=== PATIENT | female | born 1995 | race Caucasian/White ===

== ENCOUNTER 2020-01-30 23:27 | Inpatient (IN) | payer BC ==
[2020-01-31] MEDS ORDERED: Sodium Chloride 0.9% 10 ML Syringe FLUSH PRN (00:30)
[2020-01-31] MEDS ORDERED: Oxytocin/Lactated Ringers 10 UNIT/1,000 ML BAG IV SCH (00:30)
[2020-01-31] MEDS ORDERED: Bupivacaine/fentaNYL/NS 100 ML Bag EPIDUR PRN (00:46)
[2020-01-31] MEDS ORDERED: ePHEDrine 50 MG/ML SDV IVPUSH PRN (00:46)
[2020-01-31] MEDS ORDERED: fentaNYL 100 MCG/2 ML SDV EPIDUR PRN (00:46)
[2020-01-31] MEDS ORDERED: diphenhydrAMINE 50 MG/ML SDV IVPUSH PRN (00:46)
[2020-01-31] MEDS: Lactated Ringers 1,000 ML IV SCH ×2 (00:49→01:37)
--- NOTE | 2020-01-31 00:59 | PCM.LDHP ---
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 Source of Information: Patient History Limitations: Reports: No Limitations - History of Present Illness Introduction:: Kellie is a 24-year-old 2 para 1001 white female was admitted review nurse hours of 01/31/2020 9-3/7 weeks gestational age with an ROSA MARIA of 02/04/2020 in active labor with advanced cervical dilation of 8 cm.She began [place] approximately 6 hours ago. He has been active. Contractions increased and her severe, occurring every 3 minutes. Bag water is intact. The strep screen is negative. She has a history of genital HSV but has no symptoms at this time. Exam in labor and delivery is negative for any genital lesions. She is presently on Valtrex 500 mg by mouth twice a day prophylactically for the genital HSV. He was scheduled for induction on 02/01/2020 0700 hrs. 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 ROSA MARIA of is determined by last menstrual period of 04/30/2019 and supported by at least 2 ultrasounds done 09/23 and 10/20/2013. Patient had menarche at age 11. Cycles every 30 days. No control being used at this time conception. Her first delivery was at 38 weeks on 08/28/2018 after 10 hours of labor she delivered a 7 lbs. 1 oz. female via normal spontaneous vaginal delivery with the help of an epidural at [facility] in [place]. Child's name is Jian. course: Patient was first seen for the on 07/13/2019 at 10 weeks and 0 days. She was seen on a regular basis. Weight gain was from 149.8 pounds to 173 pounds for a 24 pound increase. Vital signs remained stable throughout the course and there was no evidence of gestational hypertension as it was with her first . She started on Valtrex at 36 weeks to prophylax against genital HSV recurrence. Patient does have a history of asthma but did not have any problems with this during the course of . She declined flu vaccine. T dap given on 11/29/2019 and her MMR indicated rubella immunity. She has had her HPV immunizations 2008 and her meningococcal vaccination in 2008. Laboratory testing shows blood to be AB+ with negative MRI screening. First hemoglobin is 13.5 g/dL and platelets are 239,000. She is rubella immune. Urine culture was unremarkable. Patient declined chlamydia and gonorrhea evaluation. Second trimester labs showed hemoglobin 11.3 g or deciliter and platelets at 263,000. One-hour GTT was normal at 91 group B strep screen was negative. RPR 10/28/2019 was nonreactive. Allergies: Augmentin which causes a rash Medications: 1. Valacyclovir 500 mg by mouth twice a day prophylactically for genital herpes 2. vitamins 1 daily. Past medical history: 1. Asthma 2. 2017 Past surgical history: 1. Tubes in her ears 2004. 2. [place] teeth extraction Family history: Brother with history of depression. Maternal grandmother with thyroid dysfunction. Mother and sister with history of asthma. Grandfather with colon cancer and paternal grandfather prostate cancer. Maternal grandmother with lung cancer. No anesthesia, bleeding, blood clotting problems noted in the family. Social history: Patient is single. Lives in [place]. She is any significant loss of alcohol, drugs or tobacco. Review of systems: In general patient has active labor with contractions every 3 minutes. Baby has been active by her history. Skin: Negative Lungs: No infectious symptoms or shortness of breath Cardiovascular: No chest pain or exercise intolerance Breasts: Changes associated with .. GI: Negative : Body habitus changes associated with . Musculoskeletal: Negative Neurological: Negative In general the patient is well-developed, well-nourished, pleasant female of stated age in no acute distress. On last evaluation on 01/27/2020 blood pressure 122/80 weight was 173 with pregravid weight 149.8 pounds. Height is 5 feet 5 inches and prepregnancy BMI was 24.8 Skin is warm dry without lesions. HEENT, neck and back within normal limits. Lungs are clear with good breath sounds in all lung altamirano. Cardiovascular exam shows regular and rhythm without murmurs. Breast exam is deferred having been done the first visit and found to be normal. Abdomen is gravid with last fundal height clinic at 38 cm with baby in a vertex presentation.. Genital digital exam per nursing evaluation is 8 cm. Last evaluation clinic showed cervix to be 3 cm, 80% effaced, -3 station, soft, anterior position. Extremities and neurological exam are grossly within normal limits. 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: - Infectious Disease History Infectious Disease History: Reports: Herpes (genital) Social & Family History - Family History Family Medical History: Noncontributory - Caffeine Use Caffeine Use: Reports: None - Sexual History Sexual History: Reports: Single Partner - Living Situation & Occupation Living situation: Reports: Occupation: Employed H&P Review of Systems - Review of Systems: Review Of Systems: See Below L&D Exam - Exam Exam: See Below - Vital Signs Weight: 78.925 kg - Patient Data Lab Results Last 24 hrs: Laboratory Results - last 24 hr 01/31/20 Range/Units 00:25 WBC 13.11 H (3.98-10.04) K/mm3 RBC 4.30 (3.98-5.22) M/mm3 Hgb 12.7 (11.2-15.7) gm/dl Hct 38.3 (34.1-44.9) % MCV 89.1 (79.4-94.8) fl MCH 29.5 (25.6-32.2) pg MCHC 33.2 (32.2-35.5) g/dl RDW Std Deviation 47.0 H (36.4-46.3) fL Plt Count 244 (182-369) K/mm3 MPV 9.3 L (9.4-12.3) fl Neut % (Auto) 66.4 (34.0-71.1) % Lymph % (Auto) 22.3 (19.3-51.7) % O'Brien % (Auto) 9.3 (4.7-12.5) % Eos % (Auto) 1.0 (0.7-5.8) Baso % (Auto) 0.2 (0.1-1.2) % Neut # (Auto) 8.70 H (1.56-6.13) K/mm3 Lymph # (Auto) 2.93 (1.18-3.74) K/mm3 O'Brien # (Auto) 1.22 H (0.24-0.36) K/mm3 Eos # (Auto) 0.13 (0.04-0.36) K/mm3 Baso # (Auto) 0.03 (0.01-0.08) K/mm3 Result Diagrams: 01/31/20 00:25 Problem List Initiated/Reviewed/Updated: Yes Orders Last 24hrs: Active Orders 24 hr Category Date Time Status Patient Status [ADT] Routine ADT 01/30/20 23:47 Active Patient Status [ADT] Routine ADT 01/31/20 00:30 Active Activity as Tolerated [RC] PFP Care 01/31/20 00:30 Active Communication Order [RC] ASDIRECTED Care 01/31/20 00:30 Active Heart Tones [RC] ASDIRECTED Care 01/31/20 00:30 Active Non Stress Test [RC] PER UNIT ROUTINE Care 01/30/20 23:47 Active Notify Provider [RC] ASDIRECTED Care 01/31/20 00:46 Active Notify Provider [RC] PFP Care 01/31/20 00:30 Active Notify Provider [RC] PRN Care 01/31/20 00:30 Active Peripheral IV Care [RC] . DIRECTED Care 01/31/20 00:30 Active Vital Signs [RC] PER UNIT ROUTINE Care 01/30/20 23:47 Active Vital Signs [RC] PER UNIT ROUTINE Care 01/31/20 00:30 Active Regular Diet [DIET] Diet 01/31/20 Breakfast Active RAPID PLASMA REAGIN,RPR [CHEM] Routine Lab 01/31/20 00:25 Received Bupivacaine/fentaNYL/NS [fentaNYL/Bupivacaine/NS 2 MCG- Med 01/31/20 00:46 Ordered 0.125% 100 ML] 100 ml EPIDUR ASDIRECTED PRN Lactated Ringers [Ringers, Lactated] 1,000 ml Med 01/31/20 00:30 Active IV ASDIRECTED Oxytocin/Lactated Ringers [Pitocin in LR 10 Units/1,000 Med 01/31/20 00:30 Active ML] 10 unit in 1,000 ml IV .CONTINUOUS Sodium Chloride 0.9% [Saline Flush] Med 01/31/20 00:30 Active 10 ml FLUSH ASDIRECTED PRN diphenhydrAMINE [Benadryl] Med 01/31/20 00:46 Ordered 25 mg IVPUSH Q6H PRN ePHEDrine [ePHEDrine sulfate] Med 01/31/20 00:46 Ordered 5 mg IVPUSH ASDIRECTED PRN fentaNYL [Sublimaze] Med 01/31/20 00:46 Ordered 100 mcg EPIDUR Q3H PRN Electronic Heart Tones Ext w TOCO [WOMSER] Oth 01/31/20 00:30 Ordered Routine Electronic Heart Tones Internal [WOMSER] Per Unit Oth 01/31/20 00:30 Ordered Routine Peripheral IV Insertion Adult [OM.PC] Routine Oth 01/31/20 00:30 Ordered Resuscitation Status Routine Resus Stat 01/30/20 23:47 Ordered Medication Orders Diphenhydramine HCl (Benadryl) 25 mg IVPUSH Q6H PRN PRN Reason: pruritis Ephedrine Sulfate (Ephedrine Sulfate) 5 mg IVPUSH ASDIRECTED PRN PRN Reason: Hypotension Fentanyl (Sublimaze) 100 mcg EPIDUR Q3H PRN PRN Reason: Pain Fentanyl/Bupivacaine HCl (Fentanyl/Bupivacaine/Ns 2 Mcg-0.125% 100 Ml) 100 ml EPIDUR ASDIRECTED PRN PRN Reason: Pain Lactated Ringer's (Ringers, Lactated) 1,000 mls @ 100 mls/hr IV ASDIRECTED LORRAINE Oxytocin/Lactated Ringer's (Pitocin In Lr 10 Units/1,000 Ml) 10 unit in 1,000 mls @ 500 mls/hr IV .CONTINUOUS LORRAINE; Protocol Sodium Chloride (Saline Flush) 10 ml FLUSH ASDIRECTED PRN PRN Reason: Keep Vein Open Assessment/Plan Comment:: 1. 39-2/7 week intrauterine , active labor with advanced cervical dilation of 8 cm upon admission to the hospital. 2. Group B strep screen is negative 3. Because of anticipated delivery or we will do a spinal instead of an epidural for labor analgesia 4. Rubella immune 5. Patient declined meeting gonorrhea and other STI testing at first visit 6. Patient plans to breast-feed. 7. History of gestational hypertension with last Plan: 1. Despite normal spontaneous vaginal delivery 2. Spinal analgesia prior to delivery 3. Support breast-feeding decision 4. Normal labor care
--- NOTE | 2020-01-31 01:13 | PCM.PREANE ---
Preanesthetic Assessment - Procedure Proposed Procedure: brissa - Anesthesia/Transfusion/Family Hx Anesthesia History: Prior Anesthesia Without Reaction Family History of Anesthesia Reaction: No Transfusion History: No Prior Transfusion(s) - Review of Systems General: No Symptoms Pulmonary: No Symptoms Cardiovascular: No Symptoms Gastrointestinal: No Symptoms Neurological: No Symptoms - Physical Assessment Vital Signs: 109/79 78 100% 20 Height: 5 ft 5 in Weight: 78.925 kg ASA Class: 2 Mental Status: Alert & Oriented x3 Airway Class: Mallampati = 1 Dentition: Reports: Normal Dentition Thyro-Mental Finger Breadths: 3 ROM/Head Extension: Full Lungs: Clear to Auscultation, Normal Respiratory Effort - Lab Values: Laboratory Last Values WBC 13.11 K/mm3 (3.98-10.04) H 01/31/20 00:25 RBC 4.30 M/mm3 (3.98-5.22) 01/31/20 00:25 Hgb 12.7 gm/dl (11.2-15.7) 01/31/20 00:25 Hct 38.3 % (34.1-44.9) 01/31/20 00:25 MCV 89.1 fl (79.4-94.8) 01/31/20 00:25 MCH 29.5 pg (25.6-32.2) 01/31/20 00:25 MCHC 33.2 g/dl (32.2-35.5) 01/31/20 00:25 RDW Std Deviation 47.0 fL (36.4-46.3) H 01/31/20 00:25 Plt Count 244 K/mm3 (182-369) 01/31/20 00:25 MPV 9.3 fl (9.4-12.3) L 01/31/20 00:25 Neut % (Auto) 66.4 % (34.0-71.1) 01/31/20 00:25 Lymph % (Auto) 22.3 % (19.3-51.7) 01/31/20 00:25 Dickenson % (Auto) 9.3 % (4.7-12.5) 01/31/20 00:25 Eos % (Auto) 1.0 (0.7-5.8) 01/31/20 00:25 Baso % (Auto) 0.2 % (0.1-1.2) 01/31/20 00:25 Neut # (Auto) 8.70 K/mm3 (1.56-6.13) H 01/31/20 00:25 Lymph # (Auto) 2.93 K/mm3 (1.18-3.74) 01/31/20 00:25 Dickenson # (Auto) 1.22 K/mm3 (0.24-0.36) H 01/31/20 00:25 Eos # (Auto) 0.13 K/mm3 (0.04-0.36) 01/31/20 00:25 Baso # (Auto) 0.03 K/mm3 (0.01-0.08) 01/31/20 00:25 - Allergies Allergies/Adverse Reactions: Allergies Allergy/AdvReac Type Severity Reaction Status Date / Time amoxicillin [From Augmentin] Allergy Rash Verified 01/05/20 16:55 clavulanic acid Allergy Rash Verified 01/05/20 16:55 [From Augmentin] - Blood Blood Available: No - Acknowledgements Anesthesia Type Planned: Epidural Pt an Appropriate Candidate for the Planned Anesthesia: Yes Alternatives and Risks of Anesthesia Discussed w Pt/Guardian: Yes Pt/Guardian Understands and Agrees with Anesthesia Plan: Yes PreAnesthesia Questionnaire Cardiovascular History: Reports: None Gastrointestinal History: Reports: GERD 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: - Infectious Disease History Infectious Disease History: Reports: Herpes (genital) - Past Surgical History HEENT Surgical History: Reports: Myringotomy w Tube(s), Oral Surgery - SUBSTANCE USE Smoking Status *Q: Never Smoker Tobacco Use Within Last Twelve Months: No Second Hand Smoke Exposure: No Days Per Week of Alcohol Use: 0 Recreational Drug Use History: No - HOME MEDS Home Medications: Home Meds Pnv No.95/Ferrous Fum/Folic AC [ Vitamin Tablet] 1 each PO DAILY [History] Acetaminophen [Tylenol] 650 mg PO Q6H PRN tablet 08/29/18 [Rx] - CURRENT (IN HOUSE) MEDS Current Meds: Current Medications Diphenhydramine HCl (Benadryl) 25 mg IVPUSH Q6H PRN PRN Reason: pruritis Ephedrine Sulfate (Ephedrine Sulfate) 5 mg IVPUSH ASDIRECTED PRN PRN Reason: Hypotension Fentanyl (Sublimaze) 100 mcg EPIDUR Q3H PRN PRN Reason: Pain Fentanyl/Bupivacaine HCl (Fentanyl/Bupivacaine/Ns 2 Mcg-0.125% 100 Ml) 100 ml EPIDUR ASDIRECTED PRN PRN Reason: Pain Lactated Ringer's (Ringers, Lactated) 1,000 mls @ 100 mls/hr IV ASDIRECTED LORRAINE Last Admin: 01/31/20 00:49 Dose: 999 mls/hr Oxytocin/Lactated Ringer's (Pitocin In Lr 10 Units/1,000 Ml) 10 unit in 1,000 mls @ 500 mls/hr IV .CONTINUOUS LORRAINE; Protocol Sodium Chloride (Saline Flush) 10 ml FLUSH ASDIRECTED PRN PRN Reason: Keep Vein Open
--- NOTE | 2020-01-31 02:02 | PCM.SN ---
- Free Text/Narrative Note: 01/31/20 0045 IV started 20 guage right hand times 1 attempt. AJordaCRNA
--- NOTE | 2020-01-31 02:31 | PCM.SN ---
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 She progressed relatively rapidly to complete cervical dilation. Artificial rupture membranes resulted in clear amniotic fluid. At 0209 hrs. on 01/31/2020 she delivered a viable, terry, male infant with Apgars of 8 and 9, weight 3110 g (6 lbs. 14 oz.), a length of 20.5 inches in a direct occiput anterior over an intact perineum. Baby's nose and mouth were bulb suctioned. Baby was placed on mom's abdomen and dried with warm blanket. The cord was allowed to pulsate for approximately 2 minutes and was clamped 2 and cut by the patient's father. Umbilical cord had 3 vessels and cord blood was obtained. The patient was given Pitocin IV at a rate of 500 mL per hour per protocol to reduce likelihood of bleeding. The placenta delivered in a [place]ose[place] presentation at 0214 hours, appeared intact and complete and was discarded per patient desire. Patient plans to breast-feed. Estimated blood loss was 100 mL. Condition: Good
[2020-01-31] MEDS ORDERED: Methylergonovine 0.2 MG/1 ML Amp IM STA (02:52)
[2020-01-31] MEDS ORDERED: Methylergonovine 0.2 MG/1 ML Amp ONE (02:53)
[2020-01-31] MEDS ORDERED: Docusate Sodium 100 MG Cap PO PRN (03:24)
[2020-01-31] MEDS ORDERED: Witch Hazel Medicated Pads 40/Jar TOP PRN (03:24)
[2020-01-31] MEDS ORDERED: Acetaminophen 325 MG Tab PO PRN (03:24)
[2020-01-31] MEDS ORDERED: Benzocaine/Menthol 20%-0.5% Spray 56 GM Canister TOP PRN (03:24)
[2020-01-31] MEDS: Ibuprofen 600 MG Tab PO PRN ×2 (07:01→18:58)
--- NOTE | 2020-01-31 07:59 | PCM48HPAN ---
Post Anesthesia Note - EVALUATION WITHIN 48HRS OF ANESTHETIC Vital Signs in Normal Range: Yes Patient Participated in Evaluation: Yes Respiratory Function Stable: Yes Airway Patent: Yes Cardiovascular Function Stable: Yes Hydration Status Stable: Yes Pain Control Satisfactory: Yes Nausea and Vomiting Control Satisfactory: Yes Mental Status Recovered: Yes
[2020-01-31] MEDS ORDERED: Bupivacaine 0.25% 10 ML SDV ONE (08:00)
--- NOTE | 2020-01-31 08:56 | PCM.SN ---
- Free Text/Narrative Note: Date of delivery: note: Patient is doing well in the period. Minimal lochia, voiding well, ambulated without problems. Nursing without concerns. Patient is afebrile, vital signs are stable Abdomen is flat, soft, uterus is below the umbilicus and is firm and nontender. Legs are nontender. Assessment: recovery going well. Plan: Routine care. Patient be discharged home within the next 24-48 hours.
[2020-01-31] MEDS: Prenatal Multivitamin with Calcium/Folic Acid/Iron Tab PO SCH (19:25)
--- NOTE | 2020-02-01 08:17 | PCM.DCSUM1 ---
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 She progressed relatively rapidly to complete cervical dilation. Artificial rupture membranes resulted in clear amniotic fluid. At 0209 hrs. on 01/31/2020 she delivered a viable, terry, male with Apgars of 8 and 9, weight 3110 g (6 lbs. 14 oz.), a length of 20.5 inches in a direct occiput anterior over an intact perineum. Baby's nose and mouth were bulb suctioned. Baby was placed on mom's abdomen and dried with warm blanket. The cord was allowed to pulsate for approximately 2 minutes and was clamped 2 and cut by the patient's father. Umbilical cord had 3 vessels and cord blood was obtained. The patient was given Pitocin IV at a rate of 500 mL per hour per protocol to reduce likelihood of bleeding. The placenta delivered in a [place]ose[place] presentation at 0214 hours, appeared intact and complete and was discarded per patient desire. Patient plans to breast-feed. Estimated blood loss was 100 mL. Patient is doing fine . She is ambulating well, has minimal lochia and is voiding without concerns. She is desiring discharge home. Condition: Good Diagnosis: Stroke: No - Discharge Data Discharge Date: 02/01/20 Discharge Disposition: Home, Self-Care 01 Condition: Good - Referral to Home Health Primary Care Physician: Hernán Francis MD - Patient Instructions Diet: Regular Diet as Tolerated (Nursing diet with increase calories and calcium as recommended) Driving: May Drive Today Showering/Bathing: May Shower (May take a bath) Notify Provider of: Fever, Increased Pain, Swelling and Redness, Nausea and/or Vomiting - Discharge Plan Home Medications: Home Meds Pnv No.95/Ferrous Fum/Folic AC [ Vitamin Tablet] 1 each PO DAILY [History] Acetaminophen [Tylenol] 650 mg PO Q6H PRN tablet 08/29/18 [Rx] Acetaminophen [Tylenol] 650 mg PO Q4H PRN tablet 02/01/20 [Rx] Ibuprofen [Motrin] 600 mg PO Q4H PRN tablet 02/01/20 [Rx] Referrals: James Daily MD [Physician] - (Return to clinicDr. Daily6 weeks.) - Discharge Summary/Plan Comment DC Time >30 min.: No Discharge Summary/Plan Comment: Discharge instructions: 1. Discharge home 2. Diet, activity and follow-up discussed with patient. Recommend nursing diet with increased calories and calcium. 3. Precautions given concern increased pain, bleeding, temperature, signs/ symptoms of DVT/PE. 4. Medications per home medication was printed, discussed with and given to the patient. 5. Return to clinic-Dr. Daily-[facility] in 6 weeks. Diagnosis: Term -delivered Condition: Good - Patient Data Vitals - Most Recent: Last Vital Signs Temp 36.8 C 02/01/20 02:01 Pulse 66 02/01/20 02:01 Resp 16 02/01/20 02:01 BP 127/69 02/01/20 02:01 Pulse Ox 97 02/01/20 02:01 Weight - Most Recent: 78.925 kg I&O - Last 24 hours: Intake & Output 01/31/20 02/01/20 02/01/20 22:59 06:59 14:59 Intake Total 0 Balance 0 Lab Results - Last 24 hrs: Laboratory Results - last 24 hr 01/31/20 Range/Units 00:25 RPR Non-reactive (NONREACTIVE) Med Orders - Current: Current Medications Acetaminophen (Tylenol) 650 mg PO Q4H PRN PRN Reason: mild pain or fever Benzocaine/Menthol (Dermoplast Pain Relief Reeves) 0 gm TOP ASDIRECTED PRN PRN Reason: Perineal Comfort Measure Docusate Sodium (Colace) 100 mg PO BID PRN PRN Reason: Constipation Ibuprofen (Motrin) 600 mg PO Q4H PRN PRN Reason: Mild pain or fever Last Admin: 01/31/20 18:58 Dose: 600 mg Prenat Multivit/Director Of Exhibits/Iron/Folic Ac ( Plus Iron) 1 each PO DAILY LORRAINE Last Admin: 01/31/20 19:25 Dose: Not Given Witch Dominique (Tucks) 1 pad TOP ASDIRECTED PRN PRN Reason: Perineal Comfort Measure Discontinued Medications Bupivacaine HCl (Sensorcaine-Mpf 0.25%) 10 ml .ROUTE .STK-MED ONE Stop: 01/31/20 08:01 Diphenhydramine HCl (Benadryl) 25 mg IVPUSH Q6H PRN PRN Reason: pruritis Ephedrine Sulfate (Ephedrine Sulfate) 5 mg IVPUSH ASDIRECTED PRN PRN Reason: Hypotension Fentanyl (Sublimaze) 100 mcg EPIDUR Q3H PRN PRN Reason: Pain Last Admin: 01/31/20 01:40 Dose: 100 mcg Fentanyl/Bupivacaine HCl (Fentanyl/Bupivacaine/Ns 2 Mcg-0.125% 100 Ml) 100 ml EPIDUR ASDIRECTED PRN PRN Reason: Pain Last Admin: 01/31/20 01:07 Dose: 100 ml Lactated Ringer's (Ringers, Lactated) 1,000 mls @ 100 mls/hr IV ASDIRECTED LORRAINE Last Admin: 01/31/20 01:37 Dose: 999 mls/hr Oxytocin/Lactated Ringer's (Pitocin In Lr 10 Units/1,000 Ml) 10 unit in 1,000 mls @ 500 mls/hr IV .CONTINUOUS LORRAINE; Protocol Last Titration: 01/31/20 02:40 Dose: 999 mls/hr, 999 mls/hr Methylergonovine Maleate (Methergine) 0.2 mg IM ONETIME STA Stop: 01/31/20 02:53 Last Admin: 01/31/20 02:55 Dose: 0.2 mg Methylergonovine Maleate (Methergine) Confirm Administered Dose 0.2 mg .ROUTE .STK-MED ONE Stop: 01/31/20 02:54 Last Admin: 01/31/20 03:43 Dose: Not Given Sodium Chloride (Saline Flush) 10 ml FLUSH ASDIRECTED PRN PRN Reason: Keep Vein Open
[2020-02-01] MEDS: Prenatal Multivitamin with Calcium/Folic Acid/Iron Tab PO SCH (09:49)
== END 2020-02-01 11:05 | disposition home or self-care (01) | DRG 560 ==
LOC: JD.OBCHECK 23:27 → JD.OB 23:32 → JD.OBCHECK 01-31 00:30 → JD.OB 01-31 01:15 → OBSVTOIN 01-31 02:09 → JD.OB 01-31 02:10
PROVIDERS: ADMIT Obstetrics & Gynecology; ATTEND Obstetrics & Gynecology
PROC: 10E0XZZ Delivery of Products of Conception, External Approach (ICD-10-PCS; principal; 2020-01-31)
PROC: 10907ZC Drainage of Amniotic Fluid, Therapeutic from Products of Conception, Via Natural or Artificial Opening (ICD-10-PCS; 2020-01-31)
PROC: 4A1HXCZ Monitoring of Products of Conception, Cardiac Rate, External Approach (ICD-10-PCS; 2020-01-31)
DX: O80 Encounter for full-term uncomplicated delivery (principal); Z3A.39 39 weeks gestation of pregnancy; Z37.0 Single live birth; Z88.1 Allergy status to other antibiotic agents
CPT/HCPCS: 01967; 36415; 59025; 59409; 85025; 86592; A9270-GY; J2210; J2590; J3010; J3490; J7120